=== PATIENT | female | born 1960 | race Caucasian/White ===

== ENCOUNTER 2017-09-30 09:37 | Emergency (ER) | payer OTHER ==
[~2017-09-30] VITALS: Ht 175.3 cm; Wt 113.0 kg
[~2017-09-30 09:37] MED LIST: Advil,Nuprin,Motrin PO; Aldactone PO; Cozaar PO; Norvasc PO; Omega III EPA + DHA PO; Percocet 5/325,Endoc PO; Vitamin-E PO; ZIAC 2.5/6.251 TAB PO; ZOFRAN4 MG PO; ZOLOFT50 MG PO; Zantac PO; Zoloft PO; [UNRECOGNIZED DRUG - OTHER] PO
[2017-09-30 10:28] LABS: EOSINOPHIL (%) 3.3 % (0-5); EOSINOPHIL COUNT 0.2 K/uL (0-0.3); HEMATOCRIT 41.1 % (36.0-46.0); IMMATURE GRANULOCYTE (%) 0.2 % (0.0-0.7); INSTRUMENT ABS NEUTROPHIL CT 2.8 K/uL; LYMPHOCYTE COUNT 1.2 K/uL (1.0-2.8); MCH 28.7 PG (29.0-34.0); MCHC 33.1 G/DL (30.0-36.0); MCV 86.7 FL (83-99); MEAN PLAT.VOLUME 9.4 uM^3 (9.5-12.4); MONOCYTE COUNT 0.4 K/uL (0-0.8); NEUTROPHIL (%) 61.3 % (45-76); NEUTROPHIL COUNT 2.8 K/uL (1.8-6.4); PLATELET COUNT 241 K/uL (156-360); RBC DIS.WIDTH-CV 13.5 % (11.8-14.6); RBC DIS.WIDTH-SD 43.3 % (39-53); RED BLOOD COUNT 4.74 M/uL (3.80-5.20); WHITE BLOOD COUNT 4.6 K/uL (4.1-10.2)
[2017-09-30 10:37] LABS: CHLORIDE 108 mEq/L (99-109); SODIUM 139 mEq/L (136-147)
[2017-09-30 10:39] LABS: GLUCOSE 93 mg/dL (70-99)
[2017-09-30 10:40] LABS: ANION GAP 8 MEQ/L (2-14)
[2017-09-30 10:43] LABS: GFR ESTIMATE (CALCULATED) > 59 mL/min/
[2017-09-30 10:44] LABS: UREA NITROGEN (BUN) 21 mg/dL (9-23)
[2017-09-30] MEDS ORDERED: PERCOCET 5/31 TABLET PO (12:52)
[2017-09-30 13:11] VITALS: BP 125/79
== END 2017-09-30 13:17 | disposition home or self-care (01) ==
LOC: EME 09:37
PROVIDERS: Emergency Medicine
DX: M25.561 Pain in right knee (principal); M79.604 Pain in right leg; M17.11 Unilateral primary osteoarthritis, right knee; I10 Essential (primary) hypertension
CPT/HCPCS: 73564; 80048; 85025; 93971; 99281; 99284; J1885

== ENCOUNTER 2018-01-07 21:51 | Emergency (ER) | payer OTHER ==
[~2018-01-07] VITALS: Ht 175.3 cm; Wt 112.4 kg
[~2018-01-07 21:51] MED LIST changes: +PERCOCET 5/31 TABLET PO
[2018-01-08] MEDS ORDERED: AUGMENTIN875 MG PO (00:31)
[2018-01-08 00:53] VITALS: BP 144/86
== END 2018-01-08 00:54 | disposition home or self-care (01) ==
LOC: EME 21:51
PROC: 3E0234Z Introduction of Serum, Toxoid and Vaccine into Muscle, Percutaneous Approach (ICD-10-PCS; principal; 2018-01-08)
DX: S61.431A Puncture wound without foreign body of right hand, initial encounter (principal); W54.0XXA Bitten by dog, initial encounter; Z23 Encounter for immunization; I10 Essential (primary) hypertension; F41.9 Anxiety disorder, unspecified
CPT/HCPCS: 73130; 99281; 99284